=== PATIENT | female | born 1990 | race Caucasian/White ===

== ENCOUNTER 2018-04-17 22:48 | Emergency (ER) | payer SELFPAY ==
[~2018-04-17] VITALS: Ht 154.9 cm; Wt 56.3 kg
[~2018-04-17 22:48] MED LIST: ASPI1TAB2 PO; NO MEDS; ONDA4TAB13 PO
[2018-04-17 23:00] VITALS: BP 129/62; PULSE 90; RESP 18; Ht 154.9 cm; Wt 56.3 kg
== END 2018-04-18 01:54 | disposition left against medical advice (07) ==
LOC: FTE 22:48
DX: Z53.21 Procedure and treatment not carried out due to patient leaving prior to being seen by health care provider (principal)

== ENCOUNTER 2018-07-26 18:58 | Emergency (ER) | payer OTHER ==
[~2018-07-26] VITALS: Ht 154.9 cm; Wt 56.3 kg
[2018-07-26 19:09] VITALS: BP 119/66; PULSE 95; RESP 18; Ht 154.9 cm; Wt 56.3 kg
[2018-07-26] MEDS ORDERED: ACET500C5 PO (21:53)
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
== END 2018-07-26 22:41 | disposition left against medical advice (07) ==
LOC: FTE 18:58
DX: O9A.211 Injury, poisoning and certain other consequences of external causes complicating pregnancy, first trimester (principal); S00.03XA Contusion of scalp, initial encounter; R10.2 Pelvic and perineal pain; W22.03XA Walked into furniture, initial encounter; Y92.9 Unspecified place or not applicable; Z3A.01 Less than 8 weeks gestation of pregnancy; Z79.82 Long term (current) use of aspirin
CPT/HCPCS: 36415; 76801; 76817; 81001; 81025; 84702; 85025; 86900; 86901; Z7502; 81003

== ENCOUNTER 2018-08-20 23:03 | Emergency (ER) | payer OTHER ==
[~2018-08-20] VITALS: Wt 59.3 kg
[~2018-08-20 23:03] MED LIST changes: +ACET500C5 PO
[2018-08-20 23:08] VITALS: BP 100/65; PULSE 81; RESP 18
[2018-08-21] MEDS ORDERED: ACETAMINOPHEN 500 MG TAB PO STA (00:21)
--- NOTE | 2018-08-21 00:21 | ERD ---
ER Documentation Chief Complaint Chief Complaint 9 WEEKS PG, PELVIC PAIN X'S 6 HOURS HPI This is a 28-year-old female who presents to emergency department with complaints of pelvic pain for about 6 hours. Stated that she is 9 weeks . She does not know exactly when was her last menstrual.. She has seen her OB and she was prescribed with vitamins. She is a G2, . LMP: Unknown specific date. G2, . Denies headache, head injury, loss of consciousness, dizziness, neck pain, neck stiffness, throat pain, difficulty swallowing, difficulty breathing lying flat, shoulder pain, chest pain, back pain, abdominal pain, nausea, vomiting, constipation, diarrhea, urinary symptoms, or possibility being , loss of bowel and bladder control, trauma, injury, falls, difficulty walking due to pain, numbness or tingling sensation, calf pain, recent travel, recent major surgery in the last 3 weeks, calf pain, recent long travel, recent exposure to any illness, recent antibiotic use in the last 3 months, fever, chills, seizures. Past medical history: Surgical history: Social: Denies smoking, use of alcoholic beverages, use of illegal drugs. ROS All systems reviewed and are negative except as per history of present illness. Medications Home Meds Active Scripts Vit No.124/Iron/FA ( Vitamin Tablet) 1 Each Tablet, 1 EACH PO DAILY, #30 TAB Prov:USHA MAHARAJ F 08/21/18 Acetaminophen* (Tylophen*) 500 Mg Capsule, 1 CAP PO Q6H PRN for PAIN AND OR ELEVATED TEMP, #20 CAP Prov:USHA MAHARAJ F 08/21/18 Acetaminophen* (Tylophen*) 500 Mg Capsule, 1 CAP PO Q6H PRN for PAIN AND OR ELEVATED TEMP, #20 CAP Prov:LARRY MELTON PA-C 07/26/18 Ondansetron Hcl* (Zofran*) 4 Mg Tab, 4 MG PO Q4H PRN for NAUSEA AND OR VOMITING, #20 TAB Prov:VALERI JACK PA-C 01/21/15 Zxnmrbl-Vfthpkjccnhco-Rahsspfo* (Excedrin Extra Strength*) 250-250-65 Mg Tablet, 1 TAB PO Q6H PRN for PAIN, #30 TAB Prov:VALERI JACK PA-C 01/21/15 Reported Medications [No Meds] No Conflict Check 09/12/10 Allergies Allergies: Coded Allergies: No Known Drug Allergy (Verified Allergy, Mild, 07/26/18) PMhx/Soc History of Surgery: No Anesthesia Reaction: No Hx Neurological Disorder: No Hx Respiratory Disorders: No Hx Cardiac Disorders: No Hx Psychiatric Problems: No Hx Miscellaneous Medical Probl: No Hx Alcohol Use: No Hx Substance Use: No Hx Tobacco Use: No Physical Exam Vitals Vital Signs Date Temp Pulse Resp B/P (MAP) Pulse Ox O2 O2 Flow FiO2 Time Delivery Rate 08/20/18 98.5 81 18 100/65 99 23:08 (77) Physical Exam Const: No acute distress Head: Atraumatic Eyes: Normal Conjunctiva ENT: Normal External Ears, Nose and Mouth. Neck: Full range of motion. No meningismus. Resp: Clear to auscultation bilaterally Cardio: Regular rate and rhythm, no murmurs Abd: Soft, non tender, non distended. Normal bowel sounds. Negative Flores sign. Negative Riggins sign (heel jar test). Negative psoas sign. Negative Rovsing sign. No CVA tenderness. Skin: No petechiae or rashes. Color appears normal for ethnicity. Back: No midline or flank tenderness Ext: No cyanosis, or edema Neur: Awake and alert. No neurological deficits. Psych: Normal Mood and Affect Result Diagram: 08/21/184908/21/18 005 Results 24 hrs Laboratory Tests Test 08/21/18 00:50 White Blood Count 11.3 10^3/ul Red Blood Count 3.35 10^6/ul Hemoglobin 10.6 g/dl Hematocrit 32.2 % Mean Corpuscular Volume 96.1 fl Mean Corpuscular Hemoglobin 31.6 pg Mean Corpuscular Hemoglobin Concent 32.9 g/dl Red Cell Distribution Width 13.4 % Platelet Count 211 10^3/UL Mean Platelet Volume 9.0 fl Immature Granulocytes % 0.400 % Neutrophils % 68.0 % Lymphocytes % 24.8 % Monocytes % 6.2 % Eosinophils % 0.4 % Basophils % 0.2 % Nucleated Red Blood Cells % 0.0 /100WBC Immature Granulocytes # 0.050 10^3/ul Neutrophils # 7.7 10^3/ul Lymphocytes # 2.8 10^3/ul Monocytes # 0.7 10^3/ul Eosinophils # 0.0 10^3/ul Basophils # 0.0 10^3/ul Nucleated Red Blood Cells # 0.0 10^3/ul Urine Color YELLOW Urine Clarity CLEAR Urine pH 7.0 Urine Specific [place] 1.014 Urine Ketones NEGATIVE mg/dL Urine Nitrite NEGATIVE mg/dL Urine Bilirubin NEGATIVE mg/dL Urine Urobilinogen NEGATIVE mg/dL Urine Leukocyte Esterase NEGATIVE Lala/ul Urine Hemoglobin NEGATIVE mg/dL Urine Glucose NEGATIVE mg/dL Urine Total Protein NEGATIVE mg/dl Sodium Level 138 mmol/L Potassium Level 3.7 mmol/L Chloride Level 105 mmol/L Carbon Dioxide Level 26 mmol/L Anion Gap 7 Blood Urea Nitrogen 9 mg/dl Creatinine 0.54 mg/dl Est Glomerular Filtrat Rate mL/min > 60 mL/min Glucose Level 101 mg/dl Calcium Level 9.5 mg/dl Total Bilirubin 0.3 mg/dl Direct Bilirubin 0.00 mg/dl Indirect Bilirubin 0.3 mg/dl Aspartate Amino Transf (AST/SGOT) 22 IU/L Alanine Aminotransferase (ALT/SGPT) 18 IU/L Alkaline Phosphatase 38 IU/L Total Protein 6.6 g/dl Albumin 3.9 g/dl Globulin 2.70 g/dl Albumin/Globulin Ratio 1.44 Amylase Level 62 U/L Lipase 37 U/L Beta HCG, Quantitative 198525.0 mIU/ml Current Medications Medications Dose Sig/Sharon Start Time Status Last (Trade) Ordered Route PRN Stop Time Admin Dose Reason Admin 500 mg ONCE STAT 08/21/18 DC 08/21/18 Acetaminophen PO 00:21 00:59 (Tylenol 08/21/18 00:24 Tab) Procedures/MDM Diagnostic tests: Urinalysis: Reviewed. Culture urine: Sent. Beta hCG quantitative:353610.0 Type and Rh: O+. Blood works: Reviewed. OB ultrasound: Single live intrauterine with an estimated gestational age of 10 weeks 1 day based on ultrasound measurement. Treatment: Tylenol p.o. Re-evaluation: No episode of emesis here in the emergency department. Denies abdominal pain. No abdominal tenderness. No CVA tenderness. Stated that she feels much better at this time and that she is ready to go home. Differential diagnosis I have low suspicion for sepsis, hemorrhaging. Final diagnosis: Pelvic pain in . Prescription: Tylenol. vitamins. Follow-up with PCP in the next 24-48 hours. Follow-up with OB in the next 24 to 48 hours. Come back here in the emergency department for any new symptoms or any worsening symptoms. All questions and concerns were answered. Patient and family members verbalized understanding and agreed with plan of care. Hemodynamically stable on discharge. Departure Diagnosis: Primary Impression: Pelvic pain complicating Condition: Stable Additional Instructions: Follow-up with PCP in the next 24-48 hours. Follow-up with OB in the next 24 to 48 hours. Come back here in the emergency department for any new symptoms or any worsening symptoms. USHA MAHARAJ August 21, 2018 00:20
[2018-08-21] MEDS ORDERED: ACET500C5 PO (03:56)
[2018-08-21] MEDS ORDERED: PREN-93 PO (03:56)
== END 2018-08-21 04:11 | disposition home or self-care (01) ==
LOC: FTE 23:03
DX: O26.891 Other specified pregnancy related conditions, first trimester (principal); R10.2 Pelvic and perineal pain; Z3A.10 10 weeks gestation of pregnancy
CPT/HCPCS: 76801; 80053; 81003; 82150; 83690; 84702; 85025; 86900; 86901; 87086; Z7610